=== PATIENT | female | born 1990 ===

== ENCOUNTER 2018-01-19 00:46 | Emergency (ER) | payer SELFPAY ==
[~2018-01-19] VITALS: Ht 170.2 cm; Wt 91.2 kg
[2018-01-19 01:17] LABS: APPEARANCE CLEAR ((CLEAR)); BILIRUBIN NEGATIVE; BLOOD SMALL; COLOR COLORLESS ((YELLOW)); GLUCOSE (STRIP) NEGATIVE; KETONES NEGATIVE; LEUKOCYTES MODERATE; NITRITE NEGATIVE; PROTEIN (STRIP) NEGATIVE; SPECIFIC GRAVITY 1.003 (1.000-1.030); UROBILINOGEN 0.2 MG/DL (0.2-1.0)
[2018-01-19 01:25] LABS: HEMATOCRIT 35.1 % (36.0-46.0); HEMOGLOBIN 11.6 G/DL (11.9-15.5); MCV 78.7 FL (83-99); PLATELET COUNT 248 K/uL (156-360); RBC DIS.WIDTH-CV 14.5 % (11.8-14.6); RBC DIS.WIDTH-SD 41.5 % (39-53); RED BLOOD COUNT 4.46 M/uL (3.80-5.20); WHITE BLOOD COUNT 9.6 K/uL (4.1-10.2)
[2018-01-19 01:37] LABS: ALBUMIN 4.7 g/dL (3.2-4.8); CHLORIDE 108 mEq/L (99-109); POTASSIUM 3.8 mEq/L (3.7-5.4); SODIUM 145 mEq/L (136-147)
[2018-01-19 01:39] LABS: GLUCOSE 103 mg/dL (70-99); TOTAL PROTEIN 8.3 g/dL (6.4-8.3)
[2018-01-19 01:41] LABS: TOTAL BILIRUBIN 0.2 mg/dL (0.0-1.0)
[2018-01-19 01:43] LABS: ALKALINE PHOSPHATASE 86 IU/L (3-129); CREATININE 0.8 mg/dL (0.6-1.3)
[2018-01-19 01:44] LABS: AST (GOT) 19 IU/L (2-34); UREA NITROGEN (BUN) 13 mg/dL (9-23)
[2018-01-19 01:45] LABS: GFR ESTIMATE (CALCULATED) > 59 mL/min/
[2018-01-19 01:46] LABS: ALT (GPT) 18 IU/L (3-49)
[2018-01-19 01:51] LABS: BACTERIA RARE /HPF; EPITHELIAL CELLS 1+ /HPF; MUCUS NONE SEEN /LPF; RED BLOOD CELLS 0-5 /HPF (0-5); UCUL ADDED? NO; WHITE BLOOD CELLS 0-5 /HPF (0-5)
[2018-01-19 01:53] LABS: QUANTITATIVE HCG < 4.0 MIU/ML
[2018-01-19] MEDS ORDERED: KEFLEX500 MG PO (04:25)
[2018-01-19 04:57] VITALS: BP 130/82
== END 2018-01-19 04:58 | disposition home or self-care (01) ==
LOC: EME 00:46
DX: R51 Headache (principal); N39.0 Urinary tract infection, site not specified; R42 Dizziness and giddiness
CPT/HCPCS: 70450; 80053; 81003; 84702; 85027; 99281; 99285; J1885; J2405; J7030